=== PATIENT | female | born 1930 | race Caucasian/White ===

== ENCOUNTER 2017-10-18 14:00 | Outpatient (CLI) | payer MEDICARE, OTHER | END 2017-10-18 14:01 | disposition home or self-care (01) | LOC: BICMAMMO 14:00 | PROVIDERS: ATTEND Family Medicine | DX: Z12.31 Encounter for screening mammogram for malignant neoplasm of breast (principal) | CPT/HCPCS: 77063; 77067 ==

== ENCOUNTER 2017-11-06 08:10 | Outpatient (CLI) | payer MEDICARE, OTHER ==
--- NOTE | 2017-11-06 09:59 | MRI ---
MRI LUMBAR SPINE WITHOUT CONTRAST: History: Lumbar radiculopathy. Comparison: None. FINDINGS: The aortic contour is normal although mildly tortuous. No hydronephrosis. There is a right sided michael l cyst. Mild paraspinal muscular atrophy. The conus medullaris terminates near the mid L2 vertebral body. There is no acute fracture or malalig nment. There are Modic type I changes inferior plate of L3 and superior endplate of L4 as well as inf erior endplate of L2. No acute fracture or malalignment. Levels are as follows: T12-L1: Severe disc space height loss and facet arthropathy. Posterior disc osteophyte complex. Effac ement of the ventral CSF space. The spinal canal measures approximately 9 mm. There is moderate right and mild left sided neural foraminal narrowing. L1-2: There is a circumferential disc bulge. Moderate facet arthropathy. The spinal canal is narrowed to approximately 9 mm. There is some crowding of the nerve roots. There is moderate right and mild l eft sided neural foraminal narrowing. L2-3: There is severe degenerative disc space height loss. Circumferential disc bulge. Severe facet a rthropathy. The spinal canal is narrowed to approximately 5 mm. There is extensive facet arthropathy. There is severe left and moderate to severe right sided neural foraminal narrowing. L3-4: Severe degenerative disc space height loss. Circumferential disc osteophyte complex. Severe fac et arthrosis. There is near complete effacement of the left and moderate right sided neural foraminal narrowing. The spinal canal narrows approximately 4 mm. There is also ligamentum flavum hypertrophy. L4-5: There is anterolisthesis of L4 over L5 due to severe facet arthrosis. Circumferential disc oste ophyte complex. There is complete effacement of both neural foramina causing severe bilateral neural foraminal narrowing. There is also impingement of the spinal canal which is also narrowed to approxim ately 4 mm. There is extensive degenerative disease between the L3-L5 spinus processes likely with chronic abutme nt. The anterolisthesis of L4 over L5 measures approximately 5 mm. L5-S1: Moderate degenerative disc space narrowing. Anterolisthesis of L5 over S1 approximately 3 mm. Severe facet arthropathy. There is severe bilateral neural foraminal narrowing. Spinal canal is only mildly narrowed to approximately 7 mm. There is an anterior spinus cyst at L4-5. IMPRESSION: 1. Multifocal severe degenerative spondylosis as described above with multifocal neural foraminal and spinal canal narrowing. 2. Cholelithiasis. 3. Right sided renal cyst. POS: [facility]
== END 2017-11-06 08:11 | disposition home or self-care (01) ==
LOC: TBSIIMAG 08:10
PROVIDERS: ATTEND Neurological Surgery
DX: M47.26 Other spondylosis with radiculopathy, lumbar region (principal); M48.061 Spinal stenosis, lumbar region without neurogenic claudication; M99.53 Intervertebral disc stenosis of neural canal of lumbar region; K80.20 Calculus of gallbladder without cholecystitis without obstruction; N28.1 Cyst of kidney, acquired
CPT/HCPCS: 72148

== ENCOUNTER 2017-11-28 06:35 | Day surgery (SDC) | payer MEDICARE, OTHER ==
[2017-11-21 14:15] VITALS: BMI 29.5
--- NOTE | 2017-11-28 07:05 | HP ---
HISTORY OF PRESENT ILLNESS: Ms. Paris is a very pleasant 87-year-old woman who is known to us for pr ior evaluations of lumbar radiculopathy and returns today with bilateral lower extremity numbness and L4 and possibly L5 fashion with standing for prolonged periods of time. She has a recent MRI from [facility] that reveals profound central canal stenosis at L3-4 and L4-L5, which likely accounts for h er symptoms. She hopes to move forward with surgical intervention to treat this. PAST MEDICAL HISTORY: Significant for hyperlipidemia, hypertension. CURRENT MEDICATIONS: Include pravastatin, amlodipine, Celebrex, fish oil. ALLERGIES: No known drug allergies. PAST SURGICAL HISTORY: Partial knee replacement, hysterectomy, bladder suspension, right and left ca rpal tunnel release. PHYSICAL EXAMINATION: Patient is alert and oriented x3. Gait is slowed and antalgic. Lower extremi ty motor exam is normal. ASSESSMENT: Lumbar stenosis. PLAN: Dr. Cline met with the patient, reviewed imaging and advocated for an L3 through L5 decompress ion. He explained to the patient the risks, benefits, and alternatives of the procedure. The patien t expressed understanding and would like to move forward with surgery as discussed and then the patie nt is mentally competent and capable of making medical decisions for herself and will move forward wi surgery as planned. This is Laith Diggs PA-C dictating for Dr. Cline.
[2017-11-28] MEDS ORDERED: CEFAZOLIN/Water 2 GM/20 ML SYRINGE ONE (08:15)
[2017-11-28] MEDS ORDERED: Bupivacaine HCl 0.5%/Epinephrine 1:200,000/PF 30 ml Vial ONE (08:58)
[2017-11-28] MEDS ORDERED: Fentanyl 250 MCG/5 ML VIAL ONE (09:10)
--- NOTE | 2017-11-28 11:24 | OP ---
DATE OF PROCEDURE: 11/28/2017 SURGEON: Ok Cline M.D. [employer] ARCHITECT: Laith Diggs PA-C INDICATION: Pain. DIAGNOSIS: Lumbar stenosis. PROCEDURE: L3 through L5 lumbar decompression. ANESTHESIA: General. TECHNIQUE: The patient was brought into the operating room and placed under general anesthesia. She was flipped from a supine or prone position on the operating room table. A linear incision was plan louis spanning L3 to L5. After prepping and draping and after an appropriate operative pause, the inci tony was created. Soft tissues were swept away from midline. Self-retaining retractors were placed in the wound for optimal exposure. After confirming the appropriate level with serial fluoroscopy, a n Adson rongeur was used to remove the spinous process of L3, L4, and the superior half of L5. High- speed cutting drill bit as well as 2, 3 and 4-mm Kerrisons were then used to perform a laminectomy ex tending through the L3 through L5 segments. Laminectomies were extended laterally to encompass the m edial aspect of the facet joints until the central canal and lateral recesses were well decompressed. The wound was then irrigated. Hemostasis was maintained throughout. The wound was then closed in anatomic layers and a pressure dressing was applied. There were no known procedural complications.
[2017-11-28] MEDS ORDERED: Acetaminophen/Codeine 30-300mg Tablet ONE (12:20)
[2017-11-28] MEDS ORDERED: ePHEDrine/0.9% NaCl/PF SYRINGE 50 mg/10 ml ONE (15:19)
[2017-11-28] MEDS ORDERED: Dexamethasone 20 MG/5 ML VIAL ONE (15:19)
[2017-11-28] MEDS ORDERED: PROPOFOL 200 MG/20 ML VIAL ONE (15:19)
[2017-11-28] MEDS ORDERED: Glycopyrrolate 0.2 MG/ML 5 ML SYRINGE ONE (15:19)
[2017-11-28] MEDS ORDERED: Lidocaine 1% PF 5 ML VIAL ONE (15:19)
[2017-11-28] MEDS ORDERED: PHENYLEPHRINE-NS 100 MCG/ML 10 ML SYRINGE ONE (15:19)
[2017-11-28] MEDS ORDERED: Ondansetron HCl/PF 4 MG/2 ML Vial ONE (15:19)
== END 2017-11-28 13:50 | disposition home or self-care (01) ==
LOC: SDC 06:35
PROVIDERS: ATTEND Neurological Surgery
PROC: 01NB0ZZ Release Lumbar Nerve, Open Approach (ICD-10-PCS; principal; 2017-11-28)
DX: M48.061 Spinal stenosis, lumbar region without neurogenic claudication (principal); M54.16 Radiculopathy, lumbar region; E78.5 Hyperlipidemia, unspecified; I10 Essential (primary) hypertension; Z79.899 Other long term (current) drug therapy; Z91.048 Other nonmedicinal substance allergy status; Z96.651 Presence of right artificial knee joint; Z98.890 Other specified postprocedural states
CPT/HCPCS: 76001; J0670; J1100; J2001; J2405; J2704; J3010

== ENCOUNTER 2018-02-18 12:45 | Outpatient (CLI) | payer MEDICARE, OTHER ==
--- NOTE | 2018-02-18 15:48 | MRI ---
NONCONTRAST MRI CERVICAL SPINE: DATE: 02/18/18. HISTORY: Cervical radiculopathy. Bilateral hand numbness. No history of injury. FINDINGS: There is volume loss involving the visualized cerebral and cerebellar hemispheres. Cervicomedullary junction demonstrates a normal MRI appearance. Multilevel degenerative changes are seen in the cervical spine. C2-3 level: There is no significant disk bulge or disk herniation. The central spinal canal and felisha ral foramina are patent at this level. C3-4 level: There are facet hypertrophic changes with mild broad-based disk-osteophyte complex. The re is mild generalized narrowing of the central spinal canal with moderate to severe right and modera te left-sided neural foraminal narrowing present. C4-5 level: There is anterolisthesis of C4 on C5 which measures approximately 4 mm. There is a broa d-based disk-osteophyte complex and prominent facet hypertrophic changes in addition to uncinate proc ess hypertrophy. There is moderate to severe narrowing of the central spinal canal. There is severe bilateral neural foraminal narrowing greater on the left. C5-6 level: There is slight anterolisthesis of C5 on C6. There is loss of intervertebral disk heigh t. There is a broad-based disk-osteophyte complex noted with facet hypertrophic changes present. Th e right neural foramen does appear patent, but there is moderate left-sided neural foraminal narrowin g. There is mild flattening of the aspect of the spinal cord, but normal signal intensity is present in the spinal cord at this level. C6-7 level: There is a broad-based disk-osteophyte complex with uncinate process hypertrophy. There is mild bilateral neural foraminal narrowing greater on the right. C7-T1 level: There is no significant disk bulge or disk herniation. There are facet hypertrophic ch anges noted greater on the left which does result in mild left-sided neural foraminal narrowing. The right neural foramen and central canal are overall patent. There is an increased T1 and T2 weighted signal intensity focus seen in the C7 vertebral body probably related to small hemangioma. T1-2 and T2-3 levels: There are broad-based disk-osteophyte complexes with trace anterolisthesis of T1 on T2. Incomplete axial imaging was obtained through these levels, but there does appear to be at moderate narrowing left-sided neural foraminal narrowing at the T1-2 level, but the right neural for amen at this level is patent. There is probably mild right-sided neural foraminal narrowing at the T 2-3 level. There does appear to be increased T2 weighted signal intensity within the spinal cord at the C4-5 lev el with flattening of the spinal cord at this level, and this is also the level of severe narrowing o f the central spinal canal. Findings are probably related to myelomalacia as opposed to cord edema a s the spinal cord does not appear expanded in this location. The remainder of the spinal cord demons trates normal signal intensity. IMPRESSION: 1. Multilevel degenerative changes with anterolisthesis of C4 on C5 and to a lesser extent C5 on C6 and T1 on T2. 2. 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 3. Multilevel neural foraminal narrowing and multiple levels of moderate and severe degrees of neura l foraminal narrowing as described above. POS: [facility]
== END 2018-02-18 12:46 | disposition home or self-care (01) ==
LOC: TBSIIMAG 12:45
PROVIDERS: ATTEND Neurological Surgery
DX: M47.22 Other spondylosis with radiculopathy, cervical region (principal); M43.12 Spondylolisthesis, cervical region; G95.89 Other specified diseases of spinal cord; M99.81 Other biomechanical lesions of cervical region
CPT/HCPCS: 72141

== ENCOUNTER 2018-03-15 14:14 | Outpatient (CLI) | payer MEDICARE, OTHER ==
--- NOTE | 2018-03-17 14:32 | EKG ---
Test Reason : Blood Pressure : / mmHG Vent. Rate : 080 BPM Atrial Rate : 080 BPM P-R Int : 174 ms QRS Dur : 078 ms QT Int : 366 ms P-R-T Axes : 075 -49 074 degrees QTc Int : 422 ms Poor data quality, interpretation may be adversely affected Sinus rhythm with Premature atrial complexes Left axis deviation Abnormal ECG When compared with ECG of 14-OCT-2011 14:57, Premature ventricular complexes are no longer Present Premature atrial complexes are now Present Non-specific change in ST segment in Lateral leads T wave inversion less evident in Lateral leads Confirmed by DR. Mindy GONZALEZ ([id number]) on 03/17/2018 2:32:06 PM Referred By: IRINA Confirmed By:DR. Mindy GONZALEZ
== END 2018-03-15 14:15 | disposition home or self-care (01) ==
LOC: LABBT 14:14
PROVIDERS: ATTEND Neurological Surgery
DX: Z01.810 Encounter for preprocedural cardiovascular examination (principal); M47.892 Other spondylosis, cervical region
CPT/HCPCS: 93005; 93010

== ENCOUNTER 2018-03-20 06:50 | Day surgery (SDC) | payer MEDICARE, OTHER ==
--- NOTE | 2018-03-20 01:59 | HP ---
HISTORY OF PRESENT ILLNESS: Ms. Paris is a very pleasant 87-year-old woman known to us for previous lumbar surgery now for severe neck and shoulder pains. She has an MRI performed at [facility] that r eveals significant stenosis in the foramina bilaterally at C4-C5, which is likely the cause of her sy mptoms. She presents now for proceed with surgical treatment. PAST MEDICAL HISTORY: Hyperlipidemia, hypertension. CURRENT MEDICATIONS: Pravastatin, amlodipine, Celebrex. ALLERGIES: No known drug allergies. PAST SURGICAL HISTORY: Partial knee replacement, hysterectomy, bladder suspension, right and left ca rpal tunnel release and lumbar decompression. PHYSICAL EXAMINATION: GENERAL: Patient is alert and oriented x3. NEUROLOGIC: Gait is somewhat slow and antalgic. EXTREMITIES: Upper extremity motor exam is normal. Cervical range of motion is limited with rotatio n. ASSESSMENT: Cervical radiculopathy. PLAN: Dr. Cline met with the patient, reviewed imaging and advocated for C4-C5 ACDF. He explained t o the patient the risks, benefits, and alternatives of the procedure. The patient expressed understa nding and would like to move forward with surgery as discussed. I believe the patient is mentally co mpetent and capable of making medical decisions for herself and we would like to move forward with [facility] as planned. Laith Diggs PA-C dictating for Dr. Cline.
[2018-03-20] MEDS ORDERED: CEFAZOLIN/Water 2 GM/20 ML SYRINGE ONE ×2 (07:56→13:36)
[2018-03-20] MEDS ORDERED: Midazolam HCl 2 mg/2 ml Vial ONE (08:03)
[2018-03-20] MEDS ORDERED: Fentanyl 100 MCG/2 ML VIAL ONE (08:03)
[2018-03-20] MEDS ORDERED: Thrombin 5000 UNITS/5 ML VIAL ONE (08:04)
--- NOTE | 2018-03-20 11:49 | OP ---
DATE OF PROCEDURE: 03/20/2018 SURGEON: Ok Cline M.D. SHOE REPAIRMAN: Laith Diggs PA-C. INDICATION: Prevent neurologic decline. PREOPERATIVE DIAGNOSES: Cervical spondylitic myelopathy. PROCEDURE: Anterior cervical discectomy and fusion C4-5. ANESTHESIA: General. PROCEDURE IN DETAIL: The patient was brought into the operating room and placed under general anesth esia. She was placed on the table in supine position. Her neck was positioned in a neutral fashion. A transverse incision was planned over the lateral aspect of the neck on the right. After prepping and draping and after an appropriate operative pause, the incision was created. The underlying plat ysma muscles identified and incised. A blunt tissue plane anterior to the sternocleidomastoid muscle was used to gain access to the prevertebral space. Self-retaining retractors were placed in the wou nd for optimal exposure. After confirming the appropriate level with C-arm fluoroscopy, an annulotom y was performed at the C4-5 disk space. All disk material as well as anterior and posterior osteophy amberly were removed. After complete decompression, a 6 mm lordotic PEEK cage packed with allograft and autograft material was placed within the interbody space. An anterior cervical plate was then fashio louis to the front of the spine and secured with a total of 4 fixed screws. Midline and lateral struct ures were then inspected and found to be free from significant trauma. The wound was irrigated. Hem ostasis was maintained throughout. The wound was then closed in anatomic layers and a pressure dress ing was applied. There were no known procedural complications.
[2018-03-20] MEDS ORDERED: ePHEDrine/0.9% NaCl/PF SYRINGE 50 mg/10 ml ONE (13:43)
[2018-03-20] MEDS ORDERED: Glycopyrrolate 0.2 MG/ML 5 ML SYRINGE ONE (13:43)
[2018-03-20] MEDS ORDERED: Ondansetron HCl/PF 4 MG/2 ML Vial ONE (13:43)
[2018-03-20] MEDS ORDERED: PROPOFOL 200 MG/20 ML VIAL ONE (13:43)
[2018-03-20] MEDS ORDERED: Dexamethasone 20 MG/5 ML VIAL ONE (13:43)
[2018-03-20] MEDS ORDERED: Lidocaine 1% PF 5 ML VIAL ONE (13:43)
== END 2018-03-20 14:30 | disposition home or self-care (01) ==
LOC: SDC 06:50
PROVIDERS: ATTEND Neurological Surgery
PROC: 0RG10A0 Fusion of Cervical Vertebral Joint with Interbody Fusion Device, Anterior Approach, Anterior Column, Open Approach (ICD-10-PCS; principal; 2018-03-20)
PROC: 0RB30ZZ Excision of Cervical Vertebral Disc, Open Approach (ICD-10-PCS; 2018-03-20)
PROC: 0RG1070 Fusion of Cervical Vertebral Joint with Autologous Tissue Substitute, Anterior Approach, Anterior Column, Open Approach (ICD-10-PCS; 2018-03-20)
DX: M47.12 Other spondylosis with myelopathy, cervical region (principal); M47.22 Other spondylosis with radiculopathy, cervical region; E78.5 Hyperlipidemia, unspecified; I10 Essential (primary) hypertension; Z88.1 Allergy status to other antibiotic agents; Z79.899 Other long term (current) drug therapy
CPT/HCPCS: 20931; 20936; 22551; 22845; 22853; 76001; C1713; C1776; J1100; J2001; J2250; J2405; J2704; J3010

== ENCOUNTER 2018-05-09 12:16 | Outpatient (CLI) | payer MEDICARE, OTHER ==
--- NOTE | 2018-05-09 13:51 | RAD ---
CERVICAL SPINE SERIES 3 VIEWS: HISTORY: Postop. FINDINGS: The patient has undergone an anterior cervical fusion. There has been placement of a plate and screw s at the C4-5 level. There are markers of a disk end plant which are within the confines of the disk level. There is approximately 3-4 mm of spondylolisthesis of C4 on C5 and 4-5 mm of spondylolisthes is of C5 on C6 with marked disk narrowing. There is also marked disk narrowing at C6-7. There are m oderate degenerative facet changes. IMPRESSION: Severe arthritic changes of the spine and postop changes as discussed above. POS: [facility]
== END 2018-05-09 12:17 | disposition home or self-care (01) ==
LOC: RAD 12:16
PROVIDERS: ATTEND Neurological Surgery
DX: M47.12 Other spondylosis with myelopathy, cervical region (principal); Z98.1 Arthrodesis status
CPT/HCPCS: 72040

== ENCOUNTER 2018-12-21 14:30 | Inpatient (IN) | payer MEDICARE, OTHER ==
[2018-12-21 15:00] LABS: Hemoglobin 13.6 g/dL (12.0-16.0); Mean Corpuscular HGB CONC 33.1 g/dL (32.0-36.0); Mean Corpuscular Hemoglobin 31.6 pg (27.0-31.0); Mean Corpuscular Volume 95.5 fL (78.0-98.0); Mean Platelet Volume 6.2 fL (7.4-10.4); Platelet Count 249 thou/uL (130-400); RBC Distribution Width 11.7 % (11.5-14.5); Red Blood Cell (RBC) Count 4.31 mill/uL (4.20-5.40); White Blood Cell (WBC) Count 12.6 thou/uL (4.8-10.8)
[2018-12-21 15:17] LABS: Band 39 % (5-11); MDiff Complete? YES; Metamyelocyte 1 % (0-0); Monocytes 1 % (0-10); Neutrophil 59 % (42-75); Platelet Morphology Comment Appears Adequate
[2018-12-21 15:19] LABS: ALT (SGPT) 14 U/L (8-55); AST (SGOT) 21 U/L (5-34); Albumin 4.1 g/dL (3.4-4.8); Alkaline Phosphatase 60 U/L (40-150); Anion Gap 15 mmol/L (10-20); BUN (Urea Nitrogen) 16 mg/dL (9.8-20.1); Bilirubin, Total 0.7 mg/dL (0.2-1.2); Calc. Creatinine Clearance 0 mL/min (70-130); Calcium 9.6 mg/dL (7.8-10.44); Carbon Dioxide 24 mmol/L (23-31); Chloride 102 mmol/L (98-107); Estimated GFR-MDRD 76; Globulin 2.9 g/dL (2.4-3.5); Glucose 93 mg/dL (83-110); Potassium 3.4 mmol/L (3.5-5.1); Sodium 138 mmol/L (136-145)
[2018-12-21 15:49] LABS: Bilirubin Negative (Negative); Blood, Urine Moderate (Negative); Clarity CLOUDY (Clear); Glucose, Urine (Dipstick) Negative (Negative); Leukocyte Large (Negative); Nitrite Positive (Negative); Protein, Urine (Dipstick) Trace mg/dL (Neg-Trace); Specific Gravity, Urine 1.007 (1.002-1.036)
[2018-12-21 15:51] LABS: Bacteria/HPF 4+ HPF (None Seen); Pathc Cast-AUWi Flag 2.17 (0-2.49)
[2018-12-21 16:00] LABS: Hyaline Casts/LPF 0-3 HYALINE CAST LPF (0-3 Hyaline)
--- NOTE | 2018-12-21 16:18 | CT ---
CT cervical spine noncontrast HISTORY: Neck pain. Weakness. Prior surgery. COMPARISON: Radiograph from 05/09/2018. FINDINGS: Anterior operative fixation at the C4-5 level is again demonstrated without pericardial alec dware lucency. Minimal degenerative spondylolisthesis at the postoperative level and 0.2 cm spondylolisthesis at the C5-6 level are similar in appearance to the prior study. No acute fracture o r dislocation. Multilevel disc space narrowing and prominent osteophytosis. Erosion involves the posterior base of the odontoid process. Cervicothoracic junction is intact. IMPRESSION: Postoperative changes and prominent degenerative changes. Findings appear stable. No acut e osseous abnormalities are demonstrated.
--- NOTE | 2018-12-21 16:38 | CT ---
CT thoracic spine noncontrast HISTORY: Back pain. Weakness. FINDINGS: Vertebral body heights and AP alignment are maintained. Prominent osteophytosis. Vertebral bodies and facets. S-shaped rotatory scoliotic curvature as apparent on the coronal reformatted images. No acute fracture or dislocation. No traumatic disc herniation is apparent. Multilevel disc space narrowing and posterior osteophyte/di sc complexes. Hiatal hernia is noted on the soft tissue window images. IMPRESSION: Prominent degenerative changes throughout cervical spine. No acute osseous abnormalities are demonstrated. No acute compromise of the central canal is evident.
--- NOTE | 2018-12-21 16:42 | CT ---
CT lumbar spine noncontrast HISTORY: Low back pain. Weakness. Prior surgery. FINDINGS: Vertebral body heights are maintained. Disc space narrowing and prominent osteophytosis at each level. T12-L1: Circumferential degenerative changes. Moderate stenosis of the central canal. L1-2: Circumferential degenerative changes. Mild stenosis of the central canal and moderate stenosis of each neural foramen. L2-3: Prominent posterior disc bulge. There is 0.5 cm retrolisthesis. Circumferential degenerative ch anges with severe stenosis of the central canal. Moderate right and severe left foraminal stenoses. L3-4: Posterior disc bulge and prominent circumferential degenerative changes. There is 0.4 cm retrol isthesis. Severe stenosis of the central canal and each neural foramen, left greater than right. L4-5: There is a 0.6 cm spondylolisthesis. Posterior operative decompression of the central canal. Se gracy stenosis of each neural foramen. L5-S1: There is 0.4 cm spondylolisthesis. Disc bulge and circumferential degenerative changes. Severe stenosis of the central canal and each neural foramen. IMPRESSION: No acute fractures are apparent. There are multilevel severe degenerative changes through out the lumbar spine, including severe central canal and foraminal stenoses as detailed above.
[2018-12-21] MEDS ORDERED: Fentanyl 100 MCG/2 ML VIAL ONE (17:00)
[2018-12-21] MEDS ORDERED: cefTRIAXone\\ROCEPHIN 1 GM VIAL ONE (17:00)
[2018-12-21] MEDS ORDERED: Ondansetron PF 4 MG/2 ML Vial IVP PRN (19:32)
[2018-12-21] MEDS ORDERED: Ondansetron ODT 4 MG TAB SL PRN (19:32)
[2018-12-21] MEDS ORDERED: Morphine 4 MG/ML VIAL SLOW IVP PRN (19:49)
[2018-12-21] MEDS ORDERED: HYDROcodone/Acetaminophen 5/325 mg Tablet PO PRN (20:03)
[2018-12-21] MEDS: Sodium Chloride 0.9% 1,000 ML IV SCH (21:33)
[2018-12-21] MEDS: Senokot S 8.6-50 MG TAB PO SCH (21:35)
[2018-12-21] MEDS: Morphine 4 MG/ML VIAL SLOW IVP PRN (21:36)
[2018-12-21] MEDS ORDERED: Pravastatin Sodium 40 MG TAB PO SCH (22:45)
[2018-12-21] MEDS: Famotidine 20 MG TAB PO SCH (23:29)
--- NOTE | 2018-12-22 00:12 | CON ---
DATE OF CONSULTATION: HISTORY OF PRESENT ILLNESS: Briefly, Ms. Paris is an 88-year-old female, who is known to the [facility], while she has been a patient of Dr. Cline. She had, almost a year ago, lumbar laminectomy for some neurogenic claudication and more recently, approximately six months ago, she had a cervical fusion/ACDF for severe cervical stenosis with myelopathy. She has been seen regularly for followup. Last seen in the office was July. The patient was continuing to have weakness and severe numbness in bilateral hands and arms and lower extremities, her feet and lower legs, for which she was getting rehab at [facility] for sometime. The patient states today that she came to the emergency department due to generalized weakness starting this morning. She states that she got up for breakfast, was having some coffee while sitting in the kitchen and noticed some tingling, kind of all through her body as well as generalized weakness. She had difficulty getting up off the chair and into the restroom to use the restroom. She also states that she had some difficulty getting from the commode to the bed with the use of her walker and her . When she kind of, she states fell forward into bed, she was able to roll over but asked her to get her to the hospital due to this weakness. Ms. Paris has some generalized weakness and tingling; however, she states that most of the numbness and tingling has been the same since prior to surgery. She states that there was no new injury recently. There was no fall, bend, or twist that could have joan her spine. When I entered her hospital room, she is in good spirits. She is moving all 4 extremities well. She has some complaints of tingling all over with numbness in her hands and feet. The patient also has diagnosis of UTI that the ED has just started treating. REVIEW OF SYSTEMS: A 10-point review of systems has been completed and is negative other than stated in the above HPI. PAST MEDICAL HISTORY: Gastrointestinal disease, diverticulitis, hyperlipidemia, and hypertension. PAST SURGICAL HISTORY: Appendectomy, , bladder suspension, hysterectomy, tonsillectomy, cervical ACDF at C4-5, lumbar laminectomy, and right knee surgery. PAST SOCIAL HISTORY: The patient denies alcohol use. Denies smoking. No other illicit drugs. Lives at home with her . ALLERGIES: 1. ADHESIVE TAPE. 2. CIPRO. MEDICATIONS: 1. Tizanidine. 2. Amlodipine. 3. Celebrex. PHYSICAL EXAMINATION: VITAL SIGNS: Blood pressure 116/55, heart rate 87, respirations 20, pain 9, and O2 saturation 96% on room air. CONSTITUTION: The patient is alert and oriented x3. She is resting in her hospital bed. She is not in any visible distress. HEENT: Head is normocephalic and atraumatic. Pupils are equal, round, and reactive to light. Extraocular movements are intact. Hearing is intact. Moist mucous membranes. RESPIRATIONS: Normal work of breathing on room air. EXTREMITIES: The patient is moving all 4 extremities well. She has increased pain with right lower extremity. She has good building carpenter strength, 4+ out of 5 in biceps bilaterally and 4/5 in triceps bilaterally. Dorsiflexion and plantar flexion; 5/5 bilaterally. Knee extension; left 4/5 and right 4-/5. Positive single leg raise on the right. Positive knee pain on the right and left knee. Sensation is equal in bilateral hands. She does describe a subjective decrease in sensation in hands and forearm. The patient has symmetrical sensation in bilateral feet and lower legs. Subjective decreased sensation and numbness up to her knees. NEUROLOGIC: The patient is awake, alert, and oriented x3. Cranial nerves 2 through 12 are intact. The patient has decreased sensation subjectively in upper and lower extremities, hands and feet. Generalized weakness, upper and lower extremities. GAIT AND STATION: The patient is unable to ambulate and states that she is too weak to stand up. IMAGING STUDIES: Cervical spine CT; there are postoperative changes. Prominent degenerative changes, which appear stable from previous MRI. CT of the thoracic spine; degenerative changes throughout the cervical spine. No acute osseous abnormalities or central canal compression is evident. Lumbar CT; there are no acute fractures. There are multilevel degenerative changes throughout the lumbar spine. Surgical changes are noted, decompression at L4-5. ASSESSMENT AND PLAN: The patient has generalized weakness throughout, which the patient states is new compared as of this morning. She has history of significant numbness and weakness in both upper and lower extremities since previous spinal surgeries. There is no trauma. Given that the patient is positive for UTI, the Hospitalist Department is going to admit and while UTI is likely for her symptoms, we cannot rule out any spinal involvement. While she is in the hospital, we would recommend getting a repeat MRI of cervical spine with and without contrast to assess for any new cervical changes. Job ID: [id number]
[2018-12-22 02:44] VITALS: BMI 28.8
--- NOTE | 2018-12-22 02:58 | HP ---
PRIMARY CARE PHYSICIAN: Dr. Alcala. CHIEF COMPLAINT: Weakness. HISTORY OF PRESENT ILLNESS: Ms. Paris is an 88-year-old female who reported to the emergency room today after she noticed, after getting up this morning that she was markedly weaker than she was yesterday when she went to bed. She reports she normally has numbness and tingling in all of her extremities, but she is able to ambulate with her walker to the bathroom and into the kitchen without any difficulty. She noticed today that when she got up to get her coffee that she was much weaker and she was having a much more difficult time ambulating and that she was unable to stand once she sat down on the toilet. She reports that she had 2 surgical procedures to her spine in November of [address] Cline, but states that she has been able to ambulate as noted above with her walker. Per family, she appears more swollen today and has several days of hesitancy with urination and passing stool. She denies saddle anesthesia, foot drop, focal weakness, or speech changes. Denies any altered mental status. Reports that typically she does not have back pain, but today as the day grew on, she said her back began to hurt mostly in the lower back. In the emergency room, the patient had a CT of the lumbar, thoracic, and cervical spine. Lumbar spine, impression, no acute fractures, multilevel severe degenerative changes through the lumbar spine including severe central canal and foraminal stenosis as detailed above, L2 through S1. Thoracic spine CT showed prominent degenerative changes throughout the cervical spine. No acute osseous abnormalities are demonstrated. No acute compromise of the central canal is evident. Cervical spine CT showed postoperative changes, prominent degenerative changes, findings appear stable. The patient was also found to have a nitrite positive UTI with trace ketones, moderate blood, nitrite positive, positive for leukocyte esterase, white blood cell count greater than 50, 4+ bacteria. The urine will be sent off for culture. Neurosurgery was consulted, Dr. Loredo is on-call. Dr. Loredo's PA, Malathi Reynoso, was consulted. She was able to look at the CT scans, recommended MRI on the non-emergent basis and to be admitted via medical service, and they would be consulted. PAST MEDICAL HISTORY: Hyperlipidemia and hypertension. ALLERGIES: ADHESIVE TAPE AND CIPRO. CURRENT MEDICATIONS: 1. Amlodipine-olmesartan 5/20 mg one tablet q.a.m. 2. Celebrex 200 mg p.o. q.a.m. 3. Vitamin D3 2000 units p.o. daily. 4. Multivitamin one tablet p.o. q.a.m. 5. [place]-3 fish oil one capsule p.o. daily. 6. Pravastatin 40 mg p.o. at bedtime. REVIEW OF SYSTEMS: CONSTITUTIONAL: The patient denies night sweats. Reports weakness. Denies chills. Denies fever. Denies general malaise. EYES: Denies any eye changes or vision changes. ENT: Denies rhinorrhea or sore throat. CARDIOVASCULAR: Denies chest pain or dyspnea on exertion. Does report some edema. RESPIRATORY: Denies cough or shortness of breath. GI: Denies abdominal pain or constipation. Denies nausea. Denies vomiting. : Denies dysuria. Does report that she is having to strain more to urinate, some more hesitancy than normal. MUSCULOSKELETAL: Reports back pain. Reports leg pain. SKIN: Denies any skin changes or lesions. NEUROLOGIC: Denies mental status changes. Denies speech changes. Does report some paresthesias and sensory changes. ENDOCRINE: Denies polyuria. PSYCH: Denies any anxiety or depression. PAST SURGICAL HISTORY: Appendectomy, section, bladder suspension, hysterectomy, tonsillectomy, back and neck surgery, and right knee surgery. PSYCHIATRIC HISTORY: None. SOCIAL HISTORY: Denies any alcohol or drug use. Has no smoking history. PHYSICAL EXAMINATION: VITAL SIGNS: Blood pressure is 133/46, pulse is 89, respirations 20, temperature is 99.0, pO2 sats are 97% on room air. CONSTITUTIONAL: The patient appears nontoxic, appears in some mild pain distress, is alert and oriented to person, place, and time. HEENT: Head is atraumatic and normocephalic. Eyes; eyelids are normal to inspection. Pupils are equally round and reactive to light. ENT; mouth exam is normal. Mucous membranes are moist. NECK: Trachea is midline. There is some tenderness of C-spine to palpation. No nuchal rigidity. RESPIRATORY/CHEST: Breath sounds are clear. Chest movement is symmetrical. CARDIOVASCULAR: Regular heart rate and rhythm. Heart sounds with a 2/6 systolic ejection murmur to left sternal border. ABDOMEN: Soft. No tenderness on palpation. BACK: Tenderness, midline left spine. Straight leg raise pain to lumbar spine. EXTREMITIES: Upper extremities, inspection is normal, range of motion is normal. Motor strength is normal. Lower extremities; pedal pulses are normal. Edema is present, bilateral lower legs, 2+ extending to distal thighs. NEUROLOGIC: The patient is oriented to person, place, and time. Memory is normal. There is no focal motor or sensory deficits. SKIN: Warm, dry, and normal in color. IMAGING DATA: EKG in the ER shows a normal sinus rhythm, sinus arrhythmia 87 beats per minute, axis is left, abnormal QRS-T angle, NC interval 162. PERTINENT LABORATORY DATA: White blood cell count is 12.6, hemoglobin is 13.6, hematocrit is 41.2, and platelet count is 249. Chemistry; sodium 138, potassium is 3.4, chloride 102, carbon dioxide is 24, gap is 15, BUN is 16, creatinine is 0.73, estimated GFR is 76. Lactic acid is 1.7, glucose is 93. Liver enzymes are unremarkable. Troponin x1 is undetectable. BNP is 85.7. Lipase is 30. IMPRESSION AND PLAN: 1. Acute back pain with acute changes to functional status, difficulty walking, with CT scan showing severe degenerative changes with severe central canal and foraminal stenosis. Plan for MRI in the morning as well as PT evaluation. Neurosurgery has been consulted. 2. Urinary tract infection. We will continue the Rocephin IV piggyback. We will transition to p.o. medication once culture is back. 3. Hypertension. We will restart home medication. We will trend. 4. Hyperlipidemia. We will continue home medication. 5. Deep venous thrombosis and gastrointestinal prophylaxis will be started. 6. Hospital course will be dependent on clinical findings. Job ID: [id number]
[2018-12-22] MEDS ORDERED: cefTRIAXone\\ROCEPHIN 1 GM in Sodium Chloride 0.9% 100 ML IVPB SCH ×2 (05:00→15:00)
[2018-12-22] MEDS: Morphine 4 MG/ML VIAL SLOW IVP PRN ×2 (05:28→19:21)
[2018-12-22 06:17] LABS: #Lymphocytes 0.9 thou/uL (1.20-3.40); #Monocytes 0.4 thou/uL (0.11-0.59); #Neutrophils 9.9 thou/uL (1.40-6.50); %Basophils 0.3 % (0.0-1.0); %Eosinophils 0.2 % (0.0-10.0); %Lymphocytes 7.7 % (21.0-51.0); %Monocytes 3.4 % (0.0-10.0); %Neutrophils 88.3 % (42.0-75.0); Hemoglobin 10.9 g/dL (12.0-16.0); Mean Corpuscular Hemoglobin 31.8 pg (27.0-31.0); Mean Corpuscular Volume 96.5 fL (78.0-98.0); Mean Platelet Volume 6.2 fL (7.4-10.4); Platelet Count 221 thou/uL (130-400); RBC Distribution Width 11.8 % (11.5-14.5); Red Blood Cell (RBC) Count 3.43 mill/uL (4.20-5.40); White Blood Cell (WBC) Count 11.1 thou/uL (4.8-10.8)
[2018-12-22 06:49] LABS: Anion Gap 10 mmol/L (10-20); BUN (Urea Nitrogen) 13 mg/dL (9.8-20.1); Calc. Creatinine Clearance 72 mL/min (70-130); Calcium 8.4 mg/dL (7.8-10.44); Carbon Dioxide 24 mmol/L (23-31); Chloride 109 mmol/L (98-107); Estimated GFR-MDRD Greater than 90; Glucose 92 mg/dL (83-110); Potassium 3.5 mmol/L (3.5-5.1); Sodium 139 mmol/L (136-145)
[2018-12-22] MEDS ORDERED: Potassium Chloride 20 MEQ TAB PO SCH (08:00)
[2018-12-22] MEDS: Enoxaparin Sodium 40 MG/0.4 ML SYRINGE SC SCH (09:45)
[2018-12-22] MEDS: Senokot S 8.6-50 MG TAB PO SCH ×2 (09:47→19:18)
[2018-12-22] MEDS: Amlodipine 5 MG TAB PO SCH (09:48)
[2018-12-22] MEDS: Famotidine 20 MG TAB PO SCH ×2 (09:50→19:18)
[2018-12-22] MEDS: Sodium Chloride 0.9% 1,000 ML IV SCH (09:55)
--- NOTE | 2018-12-22 10:34 | PRG ---
DATE OF SERVICE: 12/22/2018 SUBJECTIVE: I saw Ami Paris in her hospital room this morning. I personally interviewed and examined the patient, and agreed with documentation of Malathi Reynoso PA-C, dated 12/21/2018. Briefly, Ami Paris is an 88-year-old woman, who had two operations done by my partner, Dr. Cline, last year. In November of 2017, she had a lumbar laminectomy for severe stenosis. In March 2018, she had one-level ACDF for cord compression with T2 signal change in the cord. 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 Office notes indicate improvement in motor function following those operations, but no change in the sensory disturbance in the forearms and hands nor in the feet. It is with this history that Ms. Paris came to the hospital yesterday with new onset weakness. She is up and around in the morning, sat down to have some coffee and try to get out of her chair, who felt profound weakness diffusely in all of her extremities. She made it towards the bedroom, eventually had to fall into the bed and called EMS for transport. When she got here, urinalysis showed 4+ bacteria. CT scan of the cervical spine showed no change from prior spinal configuration. She has been admitted to the Medical Service overnight and we were consulted from a neurosurgical perspective. This morning, I saw Ms. Paris and she is wide awake in her bed. She is feeling well and she does not know about her strength given the fact she has not been out of bed yet. As I look at her vitals, I see oxygen saturation in the 92% range and a T-max of 99.6. Blood pressures have been in the 100s to 110s. On examination, she has some upper motor neuron weakness especially on the right side of her body compared to the left. The triceps is weak on the right and the finger extensors are particularly weak. This could be C7 nerve root problem or upper motor neuron weakness in the upper extremity. The intrinsics are also weak on the right hand. In the lower extremities, the hip flexors and knee flexors are weaker on the right than the left. There is no facial droop that I can appreciate. There is subjective sensory disturbance in a symmetric fashion in the forearms and hands as well as lower extremities. There is a mildly elevated white count of 4+ bacteria on urinalysis. Urine culture is pending, but no results are available yet. MRI scan of cervical spine and brain are pending, but no results are available yet. Our plan is to get MRI results of the cervical spine and brain. We will ensure that she does not have a left hemisphere infarct from yesterday. I doubt she does. Her findings are most likely chronic in nature. I suspect her acute weakness is related to severe UTI rather than any acute event in the central nervous system. Nonetheless, we will get an updated set of images. I will communicate our findings with Dr. Cline's team. We will follow up tomorrow and in the clinic thereafter. Job ID: [id number]
--- NOTE | 2018-12-22 11:55 | MRI ---
MRI OF THE BRAIN WITHOUT CONTRAST: Date: 12/22/18 INDICATION: Right-sided weakness and numbness involve the upper and lower extremities. COMPARISON: None. FINDINGS: No restricted diffusion is evident to suggest presence of acute ischemia. There are appropriate flow- voids within the major intracranial vessels. The cherokee lenses have been replaced. Motion artifact li cristian image detail. There is mild chronic small vessel white matter ischemic change. No acute intracran ial hemorrhage or hydrocephalus is present. Skull and extracranial soft tissues appear within normal limits. IMPRESSION: No acute intracranial abnormality. POS: [facility]
--- NOTE | 2018-12-22 13:41 | MRI ---
MRI OF THE CERVICAL SPINE WITH AND WITHOUT IV CONTRAST: Date: 12/22/18 INDICATION: Right-sided weakness and numbness in bilateral upper and lower extremities with multiple neck and verna k surgeries. COMPARISON: Prior MRI cervical spine dated 02/18/[address] cervical spine dated 12/21/18. CONTRAST: 13 mL MultiHance. FINDINGS: As seen on the comparison CT evaluation is an ACDF at C4-5. Anterior translation of C4 on C5 and C5 o n C6 appears similar to the comparison CT evaluation. Visualized posterior fossa and prevertebral sof t tissues are unremarkable appearing. The prominent degenerative changes along the atlantoaxial artic ulation are similar appearing. No appreciable central canal narrowing is evident at this level. At C2-C3, there is mild facet joint degenerative change, but no appreciable central canal or neural f oraminal narrowing. At C3-4, there is a broad based bulge with uncovertebral hypertrophy inducing mild left and mild to m oderate right neural foraminal narrowing. This is stable to the prior exam. At C4-5, there is stable severe central canal narrowing and cord flattening. There are suspected pers istent areas of intracord T2 hyperintense signal suspected; however, on the current examination, this is not in full detail due to motion artifact. The severity of the central canal narrowing is stable. There is stable severe bilateral neural foraminal narrowing, left greater than right. At C5-6, there is a broad based bulge with fact joint degenerative change inducing moderate central c anal narrowing with mild ventral cord flattening. The degree of the motion artifact limits image deta il at this level. This, however, does appear stable to the prior exam. There is mild neural foraminal narrowing on the left that is stable. At C6-7, there is a broad based disc bulge causing mild ventral subarachnoid space effacement, but no appreciable cord contact. This is stable to the prior exam. At C7-T1, there is no appreciable central canal or neural foraminal narrowing. Postcontrast images demonstrate no area of abnormal enhancement grossly evident. IMPRESSION: 1. Stable severe central canal narrowing seen at C4-5 causing moderate cord flattening where there w as previously seen myelomalacia on the comparison MR examination of 02/18/18. The degree of motion ar tifact slightly limits the study for additional signal abnormality of the cord; however, this is felt to persist. 2. Moderate central canal narrowing at C5-6 is stable with mild ventral cord effacement. No definite cord signal abnormality is evident; however, motion artifact limits image detail. 3. Prominent neural foraminal narrowing involving multiple levels, stable. 4. No definite abnormal region of enhancement. 5. Interval ACDF at C4-5 from the comparison MR exam dated 02/18/18. POS: [facility]
--- NOTE | 2018-12-22 15:24 | PDOC.PN ---
- Subjective Encounter Start Date: 12/22/18 Encounter Start Time: 15:22 Ms. Paris was seen today in follow-up of UTI and generalized weakness. She does not have any complaints this afternoon. She stood up with assistance from PT today. - Objective MAR Reviewed: Yes Vital Signs & Weight: Vital Signs (12 hours) Temp Pulse Resp BP BP Pulse Ox 12/22/18 12:38 98.6 F 70 18 116/70 93 L 12/22/18 09:48 73 12/22/18 09:00 92 L 12/22/18 07:51 99.6 F 73 17 116/65 92 L 12/22/18 04:00 98.8 F 74 18 110/65 92 L Weight Weight 142 lb 9.6 oz I&O: 12/21/18 12/22/18 12/23/18 06:59 06:59 06:59 Intake Total 965 Balance 965 Result Diagrams: 12/22/18 05:57 12/22/18 05:57 Phys Exam - Physical Examination HEENT: PERRLA Respiratory: no wheezing, no rales, no rhonchi, clear to auscultation bilateral Cardiovascular: RRR, no significant murmur, no rub Gastrointestinal: soft, non-tender, no distention, positive bowel sounds Musculoskeletal: pulses present, edema present 1+ edema in both lower extremities Dx/Plan (1) UTI (urinary tract infection) Status: Acute (2) Generalized weakness Code(s): R53.1 - WEAKNESS Status: Acute (3) Cervical spinal stenosis Code(s): M48.02 - SPINAL STENOSIS, CERVICAL REGION Status: Acute (4) Hypertension Code(s): I10 - ESSENTIAL (PRIMARY) HYPERTENSION Status: Chronic - Plan * UTI- urine culture is growing E. Coli- still await sensitivities. She seems to be improving on Rocephin- will continue * She admits to some trouble emptying her bladder- recommend outpatient Urology referral * Cervical Spinal Stenosis- Neurosurgery evaluation is in progress ( she is post spinal surgery ) * HTN- blood pressure is stable * Continue PT/OT.
[2018-12-22] MEDS: Pravastatin Sodium 40 MG TAB PO SCH (19:22)
[2018-12-23] MEDS: Morphine 4 MG/ML VIAL SLOW IVP PRN ×2 (06:26→19:44)
[2018-12-23] MEDS: Sodium Chloride 0.9% 1,000 ML IV SCH ×2 (06:26→14:53)
[2018-12-23 06:34] LABS: #Eosinphils 0.2 thou/uL (0.0-0.7); #Lymphocytes 1.3 thou/uL (1.20-3.40); #Monocytes 0.4 thou/uL (0.11-0.59); #Neutrophils 3.9 thou/uL (1.40-6.50); %Basophils 0.7 % (0.0-1.0); %Eosinophils 2.8 % (0.0-10.0); %Lymphocytes 21.9 % (21.0-51.0); %Monocytes 6.9 % (0.0-10.0); %Neutrophils 67.8 % (42.0-75.0); Hemoglobin 11.9 g/dL (12.0-16.0); Mean Corpuscular HGB CONC 33.3 g/dL (32.0-36.0); Mean Corpuscular Volume 95.9 fL (78.0-98.0); Mean Platelet Volume 6.5 fL (7.4-10.4); Platelet Count 211 thou/uL (130-400); RBC Distribution Width 11.6 % (11.5-14.5); Red Blood Cell (RBC) Count 3.71 mill/uL (4.20-5.40); White Blood Cell (WBC) Count 5.7 thou/uL (4.8-10.8)
[2018-12-23 06:43] LABS: Anion Gap 11 mmol/L (10-20); BUN (Urea Nitrogen) 11 mg/dL (9.8-20.1); Calc. Creatinine Clearance 60 mL/min (70-130); Calcium 8.7 mg/dL (7.8-10.44); Carbon Dioxide 24 mmol/L (23-31); Chloride 107 mmol/L (98-107); Estimated GFR-MDRD 81; Glucose 81 mg/dL (83-110); Potassium 3.7 mmol/L (3.5-5.1); Sodium 138 mmol/L (136-145)
[2018-12-23] MEDS: Famotidine 20 MG TAB PO SCH ×2 (08:45→19:42)
[2018-12-23] MEDS: Amlodipine 5 MG TAB PO SCH (08:45)
[2018-12-23] MEDS: Senokot S 8.6-50 MG TAB PO SCH ×2 (08:46→19:42)
[2018-12-23] MEDS: Enoxaparin Sodium 40 MG/0.4 ML SYRINGE SC SCH (08:46)
--- NOTE | 2018-12-23 10:42 | PDOC.PN ---
- Subjective Encounter Start Date: 12/23/18 Encounter Start Time: 11:30 Subjective: Patient still very weak. Trouble getting up with PT. No other complaints. - Objective MAR Reviewed: Yes Vital Signs & Weight: Vital Signs (12 hours) Temp Pulse Resp BP BP Pulse Ox 12/23/18 08:52 95 12/23/18 08:51 95 12/23/18 08:45 67 116/58 L 12/23/18 07:32 98.3 F 67 20 116/58 L 91 L Weight Weight 142 lb 9.6 oz I&O: 12/22/18 12/23/18 12/24/18 06:59 06:59 06:59 Intake Total 965 3500 Balance 965 3500 Result Diagrams: 12/23/18 05:59 12/23/18 05:59 Phys Exam - Physical Examination Constitutional: NAD HEENT: moist MMs Respiratory: no wheezing, no rales, no rhonchi Cardiovascular: RRR, no significant murmur Gastrointestinal: soft, positive bowel sounds Neurological: non-focal, moves all 4 limbs Psychiatric: normal affect, A&O x 3 Dx/Plan (1) UTI (urinary tract infection) Status: Acute Comment: E. coli, pansensitive, leukocytosis resolved, will transition to oral Amoxicillin (2) Cervical spinal stenosis Code(s): M48.02 - SPINAL STENOSIS, CERVICAL REGION Status: Acute Comment: MRI C-spine unchanged, Neurosurgery following (3) Generalized weakness Code(s): R53.1 - WEAKNESS Status: Acute (4) Hypertension Code(s): I10 - ESSENTIAL (PRIMARY) HYPERTENSION Status: Chronic - Plan cont current plan of care, PT/OT discharge when ok with neurosurgery, may need inpatient rehab * . - Discharge Day Encounter end time: 11:40
[2018-12-23] MEDS: AMOXicillin 250 MG CAP PO SCH ×2 (15:31→19:43)
[2018-12-23] MEDS: Pravastatin Sodium 40 MG TAB PO SCH (19:43)
[2018-12-24] MEDS: Enoxaparin Sodium 40 MG/0.4 ML SYRINGE SC SCH (09:29)
[2018-12-24] MEDS: AMOXicillin 250 MG CAP PO SCH ×2 (09:30→14:24)
[2018-12-24] MEDS: Senokot S 8.6-50 MG TAB PO SCH (09:36)
[2018-12-24] MEDS: Famotidine 20 MG TAB PO SCH (09:37)
[2018-12-24] MEDS: Amlodipine 5 MG TAB PO SCH (09:37)
--- NOTE | 2018-12-24 10:20 | PDOC.PN ---
- Subjective Encounter Start Date: 12/24/18 Encounter Start Time: 12:50 Subjective: Patient able to go with PT to door using walker. Still very weak. -: Tingling in hands and feet. No fever. No N/V. No diarrhea. - Objective MAR Reviewed: Yes Vital Signs & Weight: Vital Signs (12 hours) Temp Pulse Resp BP BP Pulse Ox 12/24/18 09:37 64 154/82 H 12/24/18 07:48 98.2 F 64 16 152/82 H 94 L Weight Weight 142 lb 9.6 oz I&O: 12/23/18 12/24/18 12/25/18 06:59 06:59 06:59 Intake Total 3500 2050 Output Total 500 Balance 3500 1550 Result Diagrams: 12/23/18 05:59 12/23/18 05:59 Phys Exam - Physical Examination Constitutional: NAD HEENT: moist MMs Respiratory: no wheezing, no rales, no rhonchi Cardiovascular: RRR, no significant murmur Gastrointestinal: soft, non-tender, positive bowel sounds Neurological: non-focal, moves all 4 limbs Psychiatric: normal affect, A&O x 3 Dx/Plan (1) UTI (urinary tract infection) Status: Acute Comment: E. coli, pansensitive, leukocytosis resolved, will transition to oral Amoxicillin (2) Cervical spinal stenosis Code(s): M48.02 - SPINAL STENOSIS, CERVICAL REGION Status: Acute Comment: MRI C-spine unchanged, Neurosurgery following, spoke with Dontae and he stated no acute changes on MRI so he will set patient up with outpatient followup at Dr. Cline's clinic. (3) Generalized weakness Code(s): R53.1 - WEAKNESS Status: Acute (4) Hypertension Code(s): I10 - ESSENTIAL (PRIMARY) HYPERTENSION Status: Chronic - Plan cont current plan of care, PT/OT rehab eval and d/c once arranged * . - Discharge Day Encounter end time: 13:00
[2018-12-24 17:07] VITALS: BP 128/72; TEMP 98
--- NOTE | 2018-12-25 01:33 | DIS ---
DATE OF ADMISSION: 12/21/2018 DATE OF DISCHARGE: 12/24/2018 PRIMARY CARE PHYSICIAN: Dr. Alcala. REASON FOR ADMISSION: Spinal stenosis with worsening weakness and urinary tract infection. DISCHARGE DIAGNOSES: 1. Urinary tract infection with pansensitive E coli. 2. Cervical and lumbar spinal stenosis. 3. Generalized weakness. 4. Hypertension. PROCEDURES: 1. MRI of the brain showing no acute intracranial abnormality. 2. MRI of the cervical spine showing stable severe central canal narrowing at C4-C5 and moderate at C5-C6 and interval ACDF at C4-C5. 3. Cervical spine CT showing postoperative changes with no acute fracture or dislocation. 4. Thoracic spine CT showing prominent degenerative changes throughout the spine. 5. Lumbar spine CT showing multilevel severe degenerative changes throughout the lumbar spine including severe central canal and foraminal stenosis. CONSULTATIONS: Neurosurgery, Dr. Cline. SUMMARY OF HOSPITAL COURSE: This is an 88-year-old white female, patient of Dr. Cline, with a history of severe spinal stenosis with previous surgery. She developed severe weakness and trouble ambulating. She has to get around with a walker, so she went to the emergency room. There, she was found have evidence of urinary tract infection and she also had CTs as above. Dr. Loredo was consulted on-call for Dr. Cline, recommended MRI of the cervical spine. The patient was admitted. IV antibiotics were given. Urine culture did eventually grow back pansensitive E coli and she was switched to oral amoxicillin. The patient did have some improvement in her weakness during hospitalization, but was not able to ambulate as she normally could before. She by the day of discharge was able to ambulate with physical therapy assistance using the walker to get to the door of her room and back, still profoundly weak. I did speak with Dr. Son Noyola's PA and he noted no significant changes to her C-spine MRI and so recommended that she follow up in their clinic and he will set up an appointment for her in the next few weeks. On the day of discharge, the patient was accepted to rehab and is being transferred. DISCHARGE MANAGEMENT: Discharged to [facility]. ACTIVITY: As tolerated. DIET: Healthy heart diet. THERAPIES: Occupational and physical therapy. FOLLOWUP: Follow up with Dr. Cline in 2 to 3 weeks. MEDICATIONS: 1. Amlodipine/olmesartan 5/20 mg one tablet each morning. 2. Amoxicillin 500 mg 3 times a day for another 10 days. 3. Famotidine 20 mg twice a day. 4. Hydrocodone/acetaminophen 5/325 mg one tablet every 4 hours as needed for pain. 5. Pravastatin 40 mg at night. 6. Senokot S as needed. 7. Hay-3 1000 mg soft gel one cap daily. 8. Centrum Silver tablet daily. 9. Vitamin D3 of 2000 units daily. 10. Celebrex 200 mg daily. TIME SPENT: Arranging the details of this discharge took 32 minutes. Job ID: [id number]
== END 2018-12-24 18:55 | DRG 690 ==
LOC: ERS 14:30 → T4-B 18:00
PROVIDERS: ADMIT Internal Medicine; ATTEND Internal Medicine
DX: N39.0 Urinary tract infection, site not specified (principal); E78.5 Hyperlipidemia, unspecified; I10 Essential (primary) hypertension; M48.02 Spinal stenosis, cervical region; B96.20 Unspecified Escherichia coli [E. coli] as the cause of diseases classified elsewhere; Z88.1 Allergy status to other antibiotic agents; Z90.49 Acquired absence of other specified parts of digestive tract; Z90.710 Acquired absence of both cervix and uterus; Z90.89 Acquired absence of other organs; Z98.890 Other specified postprocedural states
CPT/HCPCS: 36415; 70551; 72125; 72128; 72131; 72156; 80048; 80053; 81003; 81015; 83605; 83690; 83880; 84484; 85025; 87077; 87086; 87186; 93005; 94760; 96361; 96365; 96375; J0696; J1650; J2270; J3010; J3490

== ENCOUNTER 2019-04-29 12:11 | Emergency (ER) | payer MEDICARE, OTHER ==
[2019-04-29] MEDS ORDERED: Morphine 4 MG/ML VIAL ONE (14:05)
[2019-04-29] MEDS ORDERED: Lorazepam 2 MG/ML VIAL ONE (14:05)
[2019-04-29] MEDS ORDERED: Ondansetron PF 4 MG/2 ML Vial ONE (14:05)
--- NOTE | 2019-04-29 14:21 | ULT ---
ULTRASOUND WITH DOPPLER DUPLEX VENOUS LOWER EXTREMITY RIGHT CPT: 75361 ICD-10-PCS: B54D HISTORY: Pain/edema of right lower extremity. Numbness. TECHNIQUE: Color flow Doppler, spectral waveform analysis of pulsed Doppler, and razo-scale imaging with jesus tony and augmentation, were used to evaluate the right common femoral, femoral, popliteal, posterior tibial, and superficial femoral, veins; and the proximal portions of the profunda femoral and greater saphenous, veins. FINDINGS: There is appropriate compressibility and flow within the imaged deep vein system of the right lower e xtremity without evidence of DVT. IMPRESSION: No DVT of the imaged right lower extremity. POS: [facility]
--- NOTE | 2019-04-29 14:59 | CT ---
CT Lumbar Spine WO Con History: Reason For Study Comparison: CT lumbar spine December 2018 Findings: Mild scarring in the lung bases. Mild diverticular disease of the sigmoid colon. Moderate a therosclerotic plaque of the aorta. Cyst inferior pole right kidney. There is no acute fracture or malalignment. Multilevel listhesis is similar. Prior laminectomy change s L3-L4. Multilevel severe neural foraminal narrowing, bilateral, from L2-S1 with exiting nerve root compressi on. There is also spinal canal narrowing at L2-L3 due to posterior disc osteophyte complex and ligamentum flavum hypertrophy with canal measuring approximately 3-4 mm. Impression: 1. No acute fracture or malalignment of the lumbar spine. 2. High-grade multilevel neural foraminal narrowing as well as L2-L3 spinal canal narrowing.
[2019-04-29 15:21] LABS: #Eosinphils 0.1 thou/uL (0.0-0.7); #Lymphocytes 1.8 thou/uL (1.20-3.40); #Monocytes 0.5 thou/uL (0.11-0.59); #Neutrophils 3.8 thou/uL (1.40-6.50); %Basophils 0.6 % (0.0-1.0); %Eosinophils 2.1 % (0.0-10.0); %Lymphocytes 29.5 % (21.0-51.0); %Monocytes 7.3 % (0.0-10.0); %Neutrophils 60.5 % (42.0-75.0); Hemoglobin 13.6 g/dL (12.0-16.0); Mean Corpuscular HGB CONC 33.3 g/dL (32.0-36.0); Mean Corpuscular Hemoglobin 31.1 pg (27.0-31.0); Mean Corpuscular Volume 93.3 fL (78.0-98.0); Mean Platelet Volume 6.7 fL (7.4-10.4); Platelet Count 258 thou/uL (130-400); RBC Distribution Width 12.1 % (11.5-14.5); Red Blood Cell (RBC) Count 4.37 mill/uL (4.20-5.40); White Blood Cell (WBC) Count 6.2 thou/uL (4.8-10.8)
[2019-04-29 15:41] LABS: ALT (SGPT) 13 U/L (8-55); AST (SGOT) 19 U/L (5-34); Albumin 4.3 g/dL (3.4-4.8); Alkaline Phosphatase 66 U/L (40-150); Anion Gap 15 mmol/L (10-20); BUN (Urea Nitrogen) 19 mg/dL (9.8-20.1); Bilirubin, Total 0.4 mg/dL (0.2-1.2); Calc. Creatinine Clearance 0 mL/min (70-130); Calcium 9.8 mg/dL (7.8-10.44); Carbon Dioxide 24 mmol/L (23-31); Chloride 105 mmol/L (98-107); Estimated GFR-MDRD 77; Glucose 87 mg/dL (83-110); Potassium 3.8 mmol/L (3.5-5.1); Protein, Total 7.3 g/dL (6.0-8.3); Sodium 140 mmol/L (136-145)
== END 2019-04-29 18:03 | disposition home or self-care (01) ==
LOC: ERS 12:11
DX: M48.061 Spinal stenosis, lumbar region without neurogenic claudication (principal); M79.89 Other specified soft tissue disorders; E78.5 Hyperlipidemia, unspecified; E78.00 Pure hypercholesterolemia, unspecified; I10 Essential (primary) hypertension; Z79.899 Other long term (current) drug therapy
CPT/HCPCS: 72131; 80053; 85025; 96361; 96374; 96375; J2060; J2270; J2405

== ENCOUNTER 2019-06-13 11:18 | Emergency (ER) | payer MEDICARE, OTHER ==
[2019-06-13] MEDS ORDERED: Ondansetron PF 4 MG/2 ML Vial ONE (11:45)
[2019-06-13] MEDS ORDERED: Morphine 4 MG/ML VIAL ONE (11:45)
[2019-06-13 12:18] LABS: Hemoglobin 13.9 g/dL (12.0-16.0); Mean Corpuscular HGB CONC 33.8 g/dL (32.0-36.0); Mean Corpuscular Hemoglobin 31.9 pg (27.0-31.0); Mean Corpuscular Volume 94.3 fL (78.0-98.0); RBC Distribution Width 12.4 % (11.5-14.5); Red Blood Cell (RBC) Count 4.35 mill/uL (4.20-5.40); White Blood Cell (WBC) Count 6.2 thou/uL (4.8-10.8)
[2019-06-13 12:28] LABS: Band 4 % (5-11); Eosinophils 1 % (0-10); Lymphocytes 23 % (21-51); MDiff Complete? YES; Mean Platelet Volume 8.6 fL (7.4-10.4); Monocytes 6 % (0-10); Neutrophil 65 % (42-75); Platelet Count 233 thou/uL (130-400); Platelet Morphology Comment Appears Adequate; RBC Morphology Normal
[2019-06-13] MEDS ORDERED: ISOVUE-370 76%-LOCM 1 ML ONE (12:45)
[2019-06-13 13:18] LABS: Albumin 3.8 g/dL (3.4-4.8)
[2019-06-13 13:20] LABS: Chloride 106 mmol/L (98-107); Potassium 3.8 mmol/L (3.5-5.1); Sodium 138 mmol/L (136-145)
[2019-06-13 13:21] LABS: Globulin 2.7 g/dL (2.4-3.5); Glucose 89 mg/dL (83-110); Protein, Total 6.5 g/dL (6.0-8.3)
[2019-06-13 13:22] LABS: Anion Gap 14 mmol/L (10-20); Carbon Dioxide 22 mmol/L (23-31)
[2019-06-13 13:23] LABS: Bilirubin, Total 0.4 mg/dL (0.2-1.2)
[2019-06-13 13:24] LABS: Alkaline Phosphatase 56 U/L (40-110); Calc. Creatinine Clearance 0 mL/min (70-130); Estimated GFR-MDRD 79
[2019-06-13 13:25] LABS: BUN (Urea Nitrogen) 17 mg/dL (9.8-20.1)
[2019-06-13 13:26] LABS: AST (SGOT) 16 U/L (5-34)
[2019-06-13 13:27] LABS: ALT (SGPT) 12 U/L (8-55)
--- NOTE | 2019-06-13 14:10 | CT ---
CT angiogram thorax with contrast CT angiogram abdomen with contrast: HISTORY: 89-year-old female with mid back pain. Rule out aortic dissection. TECHNIQUE: IV injection of iodinated contrast. Arterial bolus chasing technique. Scan acquisition from top of aortic arch to iliac crests. 3-D MIP reconstructions. FINDINGS: Ascending thoracic aorta is ectatic. Descending and abdominal aorta are tortuous. There is no aneurys m or dissection of the aorta. Mild scattered atherosclerotic calcified plaque at aortic arch, descending thoracic aorta, and abdominal aorta. No high-grade stenosis or aneurysm of common iliac ar teries. No evidence of pulmonary thromboembolus in. Severe DJD of bilateral glenohumeral joints. Mild S-shaped curvature of thoracolumbar spine. Large endplate marginal osteophytes protrude into the prevertebral space at multiple levels in the mid and lower thoracic spine, and in left side of lower lumbar spine. Thoracic and lumbar vertebral body heights are maintained with no evidence of com pression fracture. Multilevel severe degenerative disc disease in lumbar spine. Degenerative retrolisthesis of L2 on L3 and L3 on L4. Grade 1 or 2 anterolisthesis of L4 on L5 due to bilateral hi gh-grade facet DJD. Multilevel bilateral high-grade facet DJD in lumbar spine, including severe. Multilevel severe neural foraminal stenosis in lumbar spine and thoracic spine. This is greatest on t he left at L4-5 (very severe) and on the right at L5-S1 (very severe). Severe on the left at L3-4. No spondylolysis. Dependent layer of numerous small calcified gallstones. Mildly distended gallbladder but no mural thi ckening or pericholecystic fluid. Moderately large exophytic right renal cyst. No hydronephrosis bilaterally. Within the limitations of an arterial phase-only scan, no obvious major abnormality identified involving liver, adrenals, left kidney, pancreas, or spleen. Large number of diverticula throughout the descending colon and sca ttered diverticula throughout transverse colon. No small bowel dilation. No pneumoperitoneum or ascites visualized superior to the pelvis. No consolidation, pulmonary edema, pleural effusion, or pneumothorax. Lung apices excluded from image s. No mediastinal or hilar lymphadenopathy. IMPRESSION: 1. No aortic aneurysm or dissection. 2. No pulmonary thromboembolism. 3. 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 4) severe lumbar spondylosis with multilevel severe degenerative disc disease and severe facet osteoa rthrosis. 5) grade 1 or 2 spondylolisthesis at L4-5 due to severe bilateral facet osteoarthrosis. 6) multilevel severe lumbar neural foraminal stenosis, including very severe. 7) cholelithiasis without evidence of acute cholecystitis. 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
--- NOTE | 2019-06-13 14:26 | CT ---
CT LUMBAR SPINE, NONCONTRAST: CLINICAL HISTORY: Pain. COMPARISON: 04/29/2019. FINDINGS: Fracture: No evidence of acute fracture. Alignment: There is grade 1 spondylolisthesis of L4-5 and L5-S1. Mild retrolisthesis of L2-3 and L3-4 . Disc Spaces, Endplates, Facet Joints: There is multilevel endplate degenerative change, marginal oste ophyte formation, disc space narrowing and gas vacuum phenomenon. Multilevel facet osteoarthritis is present. There is moderate to severe multilevel osseous compromise of the neural foramina, as well as multilevel osseous compromise of THE central canal, moderate in degree. There is evidence of prior posterior decompression involving the L3-4 and L4-5 levels Incidental findings: Atherosclerosis. Colonic diverticulosis. Moderate distention of urinary bladder and prominence of the right urinary collection system. Partially imaged exophytic hypodensity of the right kidney. 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 IMPRESSION: Severe multilevel degenerative change throughout the lumbar spine is redemonstrated. No interval acut e compression fracture. Incidental note of moderate distention of urinary bladder, as well as distention of the partially dup licated right urinary collection system. Recommend clinical correlation. Transcribed Date/Time: 06/13/2019 3:03 PM
[2019-06-13] MEDS ORDERED: Dexamethasone 10 MG/ML VIAL ONE (14:37)
--- NOTE | 2019-06-13 14:39 | CT ---
CT THORACIC SPINE WITHOUT CONTRAST: Date: 06/13/19 COMPARISON: 12/21/18. HISTORY: Mid back pain that extends down her right leg. Patient has had two prior back surgeries. TECHNIQUE: Multiple contiguous axial images were obtained in a CT of the thoracic spine without contrast. Sagitt al and coronal reformats were performed. FINDINGS: There is S-shaped scoliotic curvature of the thoracic spine. The vertebral bodies demonstrate normal height without acute fracture or subluxation. Large bulky osteophytes are seen throughout the thoraci c spine, more prominent inferiorly. No bony narrowing of the central canal is seen. There is severe right-sided neural foraminal stenosis in the lower thoracic spine at multiple levels. Mild neural foraminal stenosis is seen in the mid le ft thoracic spine. Both of these areas of stenosis are along the areas of the concavity of the curvat ure. IMPRESSION: Degenerative changes of the thoracic spine without acute osseous abnormality. POS: [facility]ET
== END 2019-06-13 15:11 | disposition home or self-care (01) ==
LOC: ERS 11:18
DX: M51.16 Intervertebral disc disorders with radiculopathy, lumbar region (principal); M47.26 Other spondylosis with radiculopathy, lumbar region; E78.5 Hyperlipidemia, unspecified; E78.00 Pure hypercholesterolemia, unspecified; I10 Essential (primary) hypertension; Z79.899 Other long term (current) drug therapy
CPT/HCPCS: 36415; 71275; 72128; 72131; 72191; 74175; 80053; 85025; 96374; 96375; J1100; J2270; J2405; Q9966

== ENCOUNTER 2020-08-24 11:45 | Emergency (ER) | payer MEDICARE, OTHER ==
[2020-08-24 12:26] LABS: #Eosinphils 0.1 thou/uL (0.0-0.7); #Lymphocytes 1.2 thou/uL (1.20-3.40); #Monocytes 0.4 thou/uL (0.11-0.59); #Neutrophils 2.9 thou/uL (1.40-6.50); %Basophils 0.4 % (0.0-1.0); %Eosinophils 1.1 % (0.0-10.0); %Lymphocytes 25.8 % (21.0-51.0); %Monocytes 8.1 % (0.0-10.0); %Neutrophils 64.6 % (42.0-75.0); Hemoglobin 13.3 g/dL (12.0-16.0); Mean Corpuscular HGB CONC 33.6 g/dL (32.0-36.0); Mean Corpuscular Hemoglobin 32.1 pg (27.0-31.0); Mean Corpuscular Volume 95.6 fL (78.0-98.0); Mean Platelet Volume 6.8 fL (7.4-10.4); Platelet Count 208 thou/uL (130-400); RBC Distribution Width 11.7 % (11.5-14.5); Red Blood Cell (RBC) Count 4.15 mill/uL (4.20-5.40); White Blood Cell (WBC) Count 4.5 thou/uL (4.8-10.8)
[2020-08-24 12:48] LABS: ALT (SGPT) 20 U/L (8-55); AST (SGOT) 25 U/L (5-34); Alkaline Phosphatase 53 U/L (40-110); Anion Gap 16 mmol/L (10-20); BUN (Urea Nitrogen) 18 mg/dL (9.8-20.1); Bilirubin, Total 0.3 mg/dL (0.2-1.2); Calc. Creatinine Clearance 0 mL/min (70-130); Carbon Dioxide 23 mmol/L (23-31); Chloride 107 mmol/L (98-107); Glucose 103 mg/dL (83-110); Potassium 3.9 mmol/L (3.5-5.1); Sodium 142 mmol/L (136-145)
== END 2020-08-24 16:09 | disposition home or self-care (01) ==
LOC: ERS 11:45
DX: K92.1 Melena (principal); E78.5 Hyperlipidemia, unspecified; E78.00 Pure hypercholesterolemia, unspecified; I10 Essential (primary) hypertension
CPT/HCPCS: 36415; 80053; 85025; 86900; 86901; 99285